=== PATIENT | female | born 1965 | race Caucasian/White ===

== ENCOUNTER 2018-02-06 10:39 | Emergency (ER) | payer OTHER ==
[~2018-02-06] VITALS: Ht 185.4 cm; Wt 80.0 kg
[2018-02-06 11:01] LABS: BASOPHILS % (AUTO) 0.3 % (0-1); EOSINOPHILS # (AUTO) 0.1 X10'3 (0-0.9); EOSINOPHILS % (AUTO) 1.6 % (0-6); HEMATOCRIT 45.6 % (35.0-45.0); HEMOGLOBIN 15.6 g/dl (12.0-16.0); LYMPHOCYTES # (AUTO) 1.8 X10'3 (1.1-4.8); LYMPHOCYTES % (AUTO) 27.1 % (21-51); MEAN CORPUSCULAR HEMOGLOBIN 31.4 PG (27.0-31.0); MEAN CORPUSCULAR HGB CONC 34.3 % (33.0-36.5); MEAN CORPUSCULAR VOLUME 91.5 FL (78-98); MEAN PLATELET VOLUME 6.9 FL (7.4-10.4); MONOCYTES # (AUTO) 0.4 X10'3 (0-0.9); MONOCYTES % (AUTO) 5.8 % (2-12); NEUTROPHILS # (AUTO) 4.3 X10'3 (1.8-7.7); NEUTROPHILS % (AUTO) 65.2 % (42-75); PLATELET COUNT 274 X10'3 (140-440); RED BLOOD COUNT 4.98 X10'6 (4.20-5.60); RED CELL DISTRIBUTION WIDTH 13.3 % (11.5-14.5); WHITE BLOOD COUNT 6.6 X10'3 (4.5-11.0)
[2018-02-06] MEDS ORDERED: morphine IR (immed. release) 30mg tablet PO PRN (11:05)
[2018-02-06] MEDS ORDERED: proCHLORperazine 10 MG/2 ml inj IM ONE (11:10)
[2018-02-06] MEDS ORDERED: ketorolac tromethamine 15mg/ml inj. IM ONE (11:10)
[2018-02-06] MEDS ORDERED: diphenhydrAMINE 25mg capsule PO ONE (11:10)
[2018-02-06 11:16] LABS: ALANINE AMINOTRANSFERASE 30 U/L (12-78); ALBUMIN 4.1 G/DL (3.4-5.0); ALBUMIN/GLOBULIN RATIO 1.3 (1.1-1.5); ALKALINE PHOSPHATASE 79 IU/L (46-116); ANION GAP 5 (8-16); ASPARTATE AMINO TRANSFERASE 17 U/L (10-37); BILIRUBIN,TOTAL 0.6 MG/DL (0.1-1.0); BLOOD UREA NITROGEN 18 MG/DL (7-18); BUN/CREATININE RATIO 18.2 (6.6-38.0); CALCIUM 9.4 MG/DL (8.5-10.1); CHLORIDE 103 MMOL/L (99-107); CREATININE 0.99 MG/DL (0.40-0.90); GLUCOSE 106 MG/DL (70-104); POTASSIUM 4.2 MMOL/L (3.5-5.1); SODIUM 139 MMOL/L (135-145); TOTAL CARBON DIOXIDE 30.9 MMOL/L (24-32); TOTAL PROTEIN 7.3 G/DL (6.4-8.2); eGFR 59 ML/MIN
[2018-02-06 12:19] VITALS: BP 143/88
== END 2018-02-06 12:20 | disposition home or self-care (01) ==
LOC: ER 10:40
DX: R51 Headache (principal); Z90.710 Acquired absence of both cervix and uterus
CPT/HCPCS: 36415; 71045; 80053; 84484; 85025; 93005; 96372; 99285; J0780; J1885; Q0163

== ENCOUNTER 2019-04-10 12:29 | Inpatient (IN) | payer OTHER ==
[~2019-04-10] VITALS: Ht 185.4 cm; Wt 75.0 kg
--- NOTE | 2019-04-10 13:02 | NUR ---
PT REPORTS HAVING CECUM REMOVED AT [facility] ON , PT WENT HOME ON 04/02/19. LAST BM 04/09/19 0600. PT PAIN 04/29
[2019-04-10] MEDS ORDERED: ondansetron/PF 4mg/2ml inj IV ONE (13:05)
[2019-04-10] MEDS ORDERED: normal saline 1000ML IV soln IVB ONE (13:05)
[2019-04-10] MEDS ORDERED: morphine 4 MG/ML inj SYRINge IV PRN (13:05)
[2019-04-10 13:12] LABS: BASOPHILS % (AUTO) 0.4 % (0-1); EOSINOPHILS # (AUTO) 0.2 X10'3 (0-0.9); EOSINOPHILS % (AUTO) 3.1 % (0-6); HEMATOCRIT 40.2 % (35.0-45.0); HEMOGLOBIN 13.8 g/dl (12.0-16.0); LYMPHOCYTES # (AUTO) 1.5 X10'3 (1.1-4.8); LYMPHOCYTES % (AUTO) 21.1 % (21-51); MEAN CORPUSCULAR HEMOGLOBIN 31.4 PG (27.0-31.0); MEAN CORPUSCULAR HGB CONC 34.3 g/dL (33.0-36.5); MEAN CORPUSCULAR VOLUME 91.4 FL (78-98); MEAN PLATELET VOLUME 6.6 FL (7.4-10.4); MONOCYTES # (AUTO) 0.5 X10'3 (0-0.9); NEUTROPHILS # (AUTO) 4.6 X10'3 (1.8-7.7); NEUTROPHILS % (AUTO) 67.4 % (42-75); PLATELET COUNT 777 X10'3 (140-440); RED CELL DISTRIBUTION WIDTH 12.9 % (11.5-14.5); WHITE BLOOD COUNT 6.9 X10'3 (4.5-11.0)
[2019-04-10 13:22] LABS: ALANINE AMINOTRANSFERASE 102 U/L (12-78); ALBUMIN 3.6 G/DL (3.4-5.0); ALBUMIN/GLOBULIN RATIO 0.9 (1.1-1.5); ALKALINE PHOSPHATASE 102 IU/L (46-116); ANION GAP 8 (8-16); ASPARTATE AMINO TRANSFERASE 39 U/L (10-37); BILIRUBIN,TOTAL 0.4 MG/DL (0.1-1.0); BLOOD UREA NITROGEN 11 MG/DL (7-18); BUN/CREATININE RATIO 12.6 (6.6-38.0); CALCIUM 9.5 MG/DL (8.5-10.1); CHLORIDE 102 MMOL/L (99-107); CREATININE 0.87 MG/DL (0.40-0.90); GLUCOSE 98 MG/DL (70-104); POTASSIUM 3.8 MMOL/L (3.5-5.1); SODIUM 140 MMOL/L (135-145); TOTAL PROTEIN 7.5 G/DL (6.4-8.2); eGFR 68 ML/MIN
--- NOTE | 2019-04-10 13:28 | NUR ---
PT OUT TO CT VIA WHEELCHAIR WITH BIN PACKER
[2019-04-10] MEDS ORDERED: HYDROmorphone 1 mg/ml syringe IV ONE (13:45)
[2019-04-10] MEDS ORDERED: proCHLORperazine 10 MG/2 ml inj IV ONE (13:45)
[2019-04-10] MEDS ORDERED: diphenhydrAMINE 50 mg/ml inj IV PRN (14:15)
[2019-04-10] MEDS ORDERED: diphenhydrAMINE 25mg capsule PO PRN (14:15)
[2019-04-10] MEDS ORDERED: mag hydrox/Alum hydrox/simeth 30ml oral suspension PO PRN (14:15)
[2019-04-10] MEDS ORDERED: magnesium Cl slow-release 64mg tablet PO PRN (14:15)
[2019-04-10] MEDS ORDERED: magnesium 2GM in 50ml NS 50 ML IV PRN (14:15)
[2019-04-10] MEDS ORDERED: acetaminophen 650mg rectal suppository RC PRN (14:15)
[2019-04-10] MEDS ORDERED: morphine 2 MG/ML inj. syringe IV PRN (14:15)
[2019-04-10] MEDS ORDERED: acetaminophen 325mg tablet PO PRN (14:15)
[2019-04-10] MEDS ORDERED: magnesium 4gm in 100ml NS 100 ML IV PRN (14:15)
[2019-04-10] MEDS ORDERED: potassium Cl 20 mEq SR tablet PO PRN (14:15)
[2019-04-10] MEDS ORDERED: magnesium hydroxide 30ml (MOM) UD suspension PO PRN (14:15)
[2019-04-10] MEDS: K and/or MAG REPLACEMENT MC SCH (14:15)
[2019-04-10] MEDS ORDERED: potassium CL 10mEq/100ml bag 100 ML IV PRN ×2 (14:15)
[2019-04-10] MEDS ORDERED: bisacodyl 10mg suppository rectal RC PRN (14:15)
[2019-04-10] MEDS ORDERED: metoclopramide 5 mg/ml inj IV PRN (14:15)
[2019-04-10] MEDS ORDERED: CITA40TA17 PO (14:38)
[2019-04-10 14:50] LABS: LIPASE 144 U/L (73-393)
--- NOTE | 2019-04-10 15:45 | NUR ---
Received patient report from LALO Gauthier in ED. Patient now arrived to floor, NG tube to low intermittent suction. Vital signs stable, pt reports no further need at this time.
[2019-04-10 15:50] VITALS: BP 120/72
[2019-04-10] MEDS: dextrose 5%-normal saline 1,000 ML IV SCH (15:54)
--- NOTE | 2019-04-10 18:29 | NUR ---
Patient in room [facility] 359. I have received report from Poppy Whitten RN and had the opportunity to ask questions and assume patient care.
[2019-04-10] MEDS: ondansetron/PF 4mg/2ml inj IV PRN (19:23)
[2019-04-10] MEDS: morphine 2 MG/ML inj. syringe IV PRN (19:24)
[2019-04-10] MEDS: heparin, porcine 5000 units/ml vial SQ SCH (19:25)
[2019-04-10 20:00] VITALS: BP 120/78
[2019-04-10] MEDS ORDERED: HYDROmorphone inj. 0.5 MG/0.5 ML DISP.SYRIN IV PRN (21:20)
[2019-04-10] MEDS ORDERED: pantoprazole 40 MG vial IV ONE (21:40)
[2019-04-10] MEDS: diatr meglu/diatrizoate 30ml oral sol.-(3 dose) bottle PO SCH (22:37)
[2019-04-10] MEDS: HYDROmorphone 1 mg/ml syringe IV PRN (23:27)
[2019-04-10] MEDS: ESOMEPRAZOLE 40 MG VIAL IV SCH (23:27)
[2019-04-11] VITALS: BP 128/82
[2019-04-11] MEDS: dextrose 5%-normal saline 1,000 ML IV SCH ×3 (00:38→20:15)
[2019-04-11] MEDS: HYDROmorphone 1 mg/ml syringe IV PRN ×3 (05:06→18:43)
[2019-04-11 05:59] LABS: BASOPHILS % (AUTO) 0.6 % (0-1); EOSINOPHILS # (AUTO) 0.3 X10'3 (0-0.9); EOSINOPHILS % (AUTO) 6.8 % (0-6); HEMATOCRIT 31.7 % (35.0-45.0); HEMOGLOBIN 10.9 g/dl (12.0-16.0); LYMPHOCYTES # (AUTO) 1.3 X10'3 (1.1-4.8); LYMPHOCYTES % (AUTO) 27.7 % (21-51); MEAN CORPUSCULAR HEMOGLOBIN 31.9 PG (27.0-31.0); MEAN CORPUSCULAR HGB CONC 34.4 g/dL (33.0-36.5); MEAN CORPUSCULAR VOLUME 92.7 FL (78-98); MEAN PLATELET VOLUME 6.7 FL (7.4-10.4); MONOCYTES # (AUTO) 0.5 X10'3 (0-0.9); MONOCYTES % (AUTO) 10.3 % (2-12); NEUTROPHILS # (AUTO) 2.7 X10'3 (1.8-7.7); NEUTROPHILS % (AUTO) 54.6 % (42-75); PLATELET COUNT 547 X10'3 (140-440); RED BLOOD COUNT 3.42 X10'6 (4.20-5.60); RED CELL DISTRIBUTION WIDTH 12.8 % (11.5-14.5); WHITE BLOOD COUNT 4.9 X10'3 (4.5-11.0)
--- NOTE | 2019-04-11 06:06 | NUR ---
Problems reprioritized. Patient report given, questions answered & plan of care reviewed with LALO Simpson.
--- NOTE | 2019-04-11 06:15 | NUR ---
Patient in room [facility] 359. I have received report from Poppy Whitten RN and had the opportunity to ask questions and assume patient care.
[2019-04-11 06:18] LABS: ALANINE AMINOTRANSFERASE 149 U/L (12-78); ALBUMIN 2.6 G/DL (3.4-5.0); ALBUMIN/GLOBULIN RATIO 0.9 (1.1-1.5); ALKALINE PHOSPHATASE 176 IU/L (46-116); ANION GAP 5 (8-16); ASPARTATE AMINO TRANSFERASE 86 U/L (10-37); BILIRUBIN,TOTAL 0.3 MG/DL (0.1-1.0); BLOOD UREA NITROGEN 9 MG/DL (7-18); BUN/CREATININE RATIO 11.5 (6.6-38.0); CALCIUM 8.3 MG/DL (8.5-10.1); CHLORIDE 109 MMOL/L (99-107); CREATININE 0.78 MG/DL (0.40-0.90); GLUCOSE 91 MG/DL (70-104); MAGNESIUM 1.8 MG/DL (1.5-2.4); PHOSPHORUS 3.8 MG/DL (2.3-4.5); POTASSIUM 3.6 MMOL/L (3.5-5.1); SODIUM 143 MMOL/L (135-145); TOTAL CARBON DIOXIDE 28.7 MMOL/L (24-32); TOTAL PROTEIN 5.4 G/DL (6.4-8.2); eGFR 78 ML/MIN
[2019-04-11 07:00] VITALS: BP 122/77
[2019-04-11] MEDS ORDERED: diatr meglu/diatrizoate 30ml oral sol.-(3 dose) bottle PO SCH (07:00)
[2019-04-11] MEDS: diatr meglu/diatrizoate 30ml oral sol.-(3 dose) bottle PO SCH ×2 (07:14→10:44)
[2019-04-11] MEDS: citalopram 20mg tablet PO SCH (07:15)
[2019-04-11] MEDS: K and/or MAG REPLACEMENT MC SCH (08:00)
[2019-04-11] MEDS: heparin, porcine 5000 units/ml vial SQ SCH ×2 (08:00→20:15)
[2019-04-11] MEDS ORDERED: pantoprazole 40 MG vial IV SCH (08:00)
[2019-04-11] MEDS: ondansetron/PF 4mg/2ml inj IV PRN (10:51)
[2019-04-11 11:00] VITALS: BP 143/86
--- NOTE | 2019-04-11 11:31 | NUR ---
Spoke with Dr Watson and received orders to discontinue Tele monitoring. PCU button tacker
[2019-04-11] MEDS ORDERED: metoclopramide 5 mg/ml inj IV PRN (17:15)
--- NOTE | 2019-04-11 18:15 | NUR ---
Problems reprioritized. Patient report given, questions answered & plan of care reviewed with LALO Renee.
--- NOTE | 2019-04-11 18:35 | NUR ---
Patient in room [facility] 347. I have received report from Tatiana MAY and had the opportunity to ask questions and assume patient care.
[2019-04-11] MEDS: metoclopramide 5 mg/ml inj IV SCH (20:13)
[2019-04-11 20:18] VITALS: BP 137/78
[2019-04-12] VITALS: BP 137/79
[2019-04-12] MEDS: ondansetron/PF 4mg/2ml inj IV PRN ×3 (03:04→19:22)
[2019-04-12] MEDS: metoclopramide 5 mg/ml inj IV SCH ×3 (03:05→14:17)
[2019-04-12] MEDS: HYDROmorphone 1 mg/ml syringe IV PRN ×3 (03:05→19:24)
[2019-04-12 04:47] LABS: BASOPHILS % (AUTO) 0.4 % (0-1); EOSINOPHILS # (AUTO) 0.5 X10'3 (0-0.9); EOSINOPHILS % (AUTO) 8.1 % (0-6); HEMATOCRIT 30.1 % (35.0-45.0); HEMOGLOBIN 10.4 g/dl (12.0-16.0); LYMPHOCYTES # (AUTO) 1.6 X10'3 (1.1-4.8); LYMPHOCYTES % (AUTO) 27.1 % (21-51); MEAN CORPUSCULAR HEMOGLOBIN 31.6 PG (27.0-31.0); MEAN CORPUSCULAR HGB CONC 34.5 g/dL (33.0-36.5); MEAN CORPUSCULAR VOLUME 91.4 FL (78-98); MEAN PLATELET VOLUME 6.7 FL (7.4-10.4); MONOCYTES # (AUTO) 0.5 X10'3 (0-0.9); MONOCYTES % (AUTO) 8.2 % (2-12); NEUTROPHILS # (AUTO) 3.3 X10'3 (1.8-7.7); NEUTROPHILS % (AUTO) 56.2 % (42-75); PLATELET COUNT 490 X10'3 (140-440); RED BLOOD COUNT 3.29 X10'6 (4.20-5.60); RED CELL DISTRIBUTION WIDTH 12.7 % (11.5-14.5)
[2019-04-12 05:08] LABS: ALANINE AMINOTRANSFERASE 111 U/L (12-78); ALBUMIN 2.5 G/DL (3.4-5.0); ALKALINE PHOSPHATASE 146 IU/L (46-116); ANION GAP 6 (8-16); ASPARTATE AMINO TRANSFERASE 54 U/L (10-37); BILIRUBIN,TOTAL 0.3 MG/DL (0.1-1.0); BLOOD UREA NITROGEN 5 MG/DL (7-18); BUN/CREATININE RATIO 7.1 (6.6-38.0); CALCIUM 8.2 MG/DL (8.5-10.1); CHLORIDE 110 MMOL/L (99-107); GLUCOSE 95 MG/DL (70-104); MAGNESIUM 1.7 MG/DL (1.5-2.4); PHOSPHORUS 3.6 MG/DL (2.3-4.5); POTASSIUM 3.2 MMOL/L (3.5-5.1); SODIUM 146 MMOL/L (135-145); TOTAL CARBON DIOXIDE 29.7 MMOL/L (24-32); TOTAL PROTEIN 5.1 G/DL (6.4-8.2); eGFR 88 ML/MIN
--- NOTE | 2019-04-12 06:43 | NUR ---
Problems reprioritized. Patient report given, questions answered & plan of care reviewed with Anay MAY.
--- NOTE | 2019-04-12 06:59 | NUR ---
Patient in room [facility] 347. I have received report from ALONA MAY and had the opportunity to ask questions and assume patient care.
[2019-04-12 07:09] VITALS: BP 129/78
--- NOTE | 2019-04-12 07:46 | NUR ---
NEXIUM NOT AVAILABLE FOR THIS OT. CHECKED SPECIFIC BOX, OMNICELL, AND BLUE IN BOX. CALLED PHARMACY, WAITING FOR MED. WILL ADMIN WHEN AVAILABLE
[2019-04-12] MEDS: heparin, porcine 5000 units/ml vial SQ SCH ×2 (07:50→19:22)
[2019-04-12] MEDS: citalopram 20mg tablet PO SCH (07:50)
[2019-04-12] MEDS: K and/or MAG REPLACEMENT MC SCH (08:00)
[2019-04-12] MEDS: dextrose 5%-normal saline 1,000 ML IV SCH ×2 (08:44→19:24)
[2019-04-12] MEDS: ESOMEPRAZOLE 40 MG VIAL IV SCH (08:44)
[2019-04-12] MEDS: potassium Cl 20 mEq SR tablet PO PRN ×2 (10:20→18:20)
[2019-04-12 11:00] VITALS: BP 124/77
--- NOTE | 2019-04-12 18:05 | NUR ---
GAVE REPORT TO ALONA MAY
--- NOTE | 2019-04-12 18:50 | NUR ---
Patient in room [facility] 347. I have received report from Anay MAY and had the opportunity to ask questions and assume patient care.
[2019-04-12 20:00] VITALS: BP 148/81
[2019-04-12] MEDS: morphine 2 MG/ML inj. syringe IV PRN (23:08)
[2019-04-13] VITALS: BP 152/86
[2019-04-13] MEDS: HYDROmorphone 1 mg/ml syringe IV PRN ×2 (00:52→20:05)
[2019-04-13 04:33] LABS: BASOPHILS % (AUTO) 0.6 % (0-1); EOSINOPHILS # (AUTO) 0.4 X10'3 (0-0.9); EOSINOPHILS % (AUTO) 7.5 % (0-6); HEMATOCRIT 31.2 % (35.0-45.0); HEMOGLOBIN 10.9 g/dl (12.0-16.0); LYMPHOCYTES # (AUTO) 1.6 X10'3 (1.1-4.8); LYMPHOCYTES % (AUTO) 30.3 % (21-51); MEAN CORPUSCULAR VOLUME 91.3 FL (78-98); MEAN PLATELET VOLUME 6.8 FL (7.4-10.4); MONOCYTES # (AUTO) 0.5 X10'3 (0-0.9); MONOCYTES % (AUTO) 10.3 % (2-12); NEUTROPHILS # (AUTO) 2.7 X10'3 (1.8-7.7); NEUTROPHILS % (AUTO) 51.3 % (42-75); PLATELET COUNT 479 X10'3 (140-440); RED BLOOD COUNT 3.42 X10'6 (4.20-5.60); RED CELL DISTRIBUTION WIDTH 12.8 % (11.5-14.5); WHITE BLOOD COUNT 5.2 X10'3 (4.5-11.0)
[2019-04-13 04:49] LABS: ALANINE AMINOTRANSFERASE 107 U/L (12-78); ALBUMIN 2.6 G/DL (3.4-5.0); ALBUMIN/GLOBULIN RATIO 0.9 (1.1-1.5); ALKALINE PHOSPHATASE 172 IU/L (46-116); ANION GAP 4 (8-16); ASPARTATE AMINO TRANSFERASE 41 U/L (10-37); BILIRUBIN,TOTAL 0.3 MG/DL (0.1-1.0); BLOOD UREA NITROGEN 3 MG/DL (7-18); BUN/CREATININE RATIO 4.4 (6.6-38.0); CALCIUM 8.5 MG/DL (8.5-10.1); CHLORIDE 109 MMOL/L (99-107); CREATININE 0.68 MG/DL (0.40-0.90); GLUCOSE 82 MG/DL (70-104); MAGNESIUM 1.6 MG/DL (1.5-2.4); PHOSPHORUS 3.9 MG/DL (2.3-4.5); POTASSIUM 3.8 MMOL/L (3.5-5.1); SODIUM 142 MMOL/L (135-145); TOTAL CARBON DIOXIDE 29.1 MMOL/L (24-32); TOTAL PROTEIN 5.4 G/DL (6.4-8.2); eGFR > 90 ML/MIN
--- NOTE | 2019-04-13 06:31 | NUR ---
Problems reprioritized. Patient report given, questions answered & plan of care reviewed with Ksenia MAY.
[2019-04-13 07:46] VITALS: BP 132/85
[2019-04-13] MEDS: K and/or MAG REPLACEMENT MC SCH (08:00)
[2019-04-13] MEDS: heparin, porcine 5000 units/ml vial SQ SCH ×2 (10:02→20:04)
[2019-04-13] MEDS: ESOMEPRAZOLE 40 MG VIAL IV SCH (10:02)
[2019-04-13] MEDS: dextrose 5%-normal saline 1,000 ML IV SCH (10:03)
[2019-04-13] MEDS: citalopram 20mg tablet PO SCH (10:03)
[2019-04-13 12:00] VITALS: BP 126/80
[2019-04-13] MEDS ORDERED: PANT40TA4 PO (12:11)
--- NOTE | 2019-04-13 14:03 | NUR ---
Discharge currently on hold until surgeon approval per MD Watson. Gill has been rounding on pt. but this is Jace pt. and he is now back from vacation. Called Jace who says he will round on this pt. today.
[2019-04-13] MEDS ORDERED: ketorolac trometh. 30mg/ml inj. IM SCH (14:25)
--- NOTE | 2019-04-13 14:28 | NUR ---
MD RENTERIA WOULD LIKE TO KEEP PT. IN HOSPITAL FOR LONGER R/T UNRESOLVED BOWEL BLOCKAGE. MD VANCE MADE AWARE DISCHARGE IS ON HOLD. PAGER ID: [phone] MESSAGE: [phone] Naida RENTERIA ROUNDED ON PT. DOES NOT WANT TO DC. PLEASE PUT DC ON HOLD. THANK YOU. BIANCA [phone]
--- NOTE | 2019-04-13 14:30 | NUR ---
[facility] PT. WILL GO TO SX TOMORROW.
[2019-04-13] MEDS ORDERED: ketorolac trometh. 30mg/ml inj. IM PRN (14:40)
[2019-04-13] MEDS: ketorolac trometh. 30mg/ml inj. IV PRN (16:04)
[2019-04-13 18:00] VITALS: BP 144/84
--- NOTE | 2019-04-13 18:27 | NUR ---
Patient in room [facility] 347B. I have received report from LALO Mccormack and had the opportunity to ask questions and assume patient care.
--- NOTE | 2019-04-13 19:14 | NUR ---
Report given to Fred MAY.
[2019-04-13] MEDS: morphine 2 MG/ML inj. syringe IV PRN (23:25)
[2019-04-14] VITALS (22 sets, daily range): BP systolic 134–198; BP diastolic 83–102
[2019-04-14] MEDS: normal saline 1000ml 1,000 ML IV SCH ×2 (00:55→20:30)
[2019-04-14 06:24] LABS: BASOPHILS % (AUTO) 0.4 % (0-1); EOSINOPHILS # (AUTO) 0.4 X10'3 (0-0.9); EOSINOPHILS % (AUTO) 7.5 % (0-6); HEMATOCRIT 30.6 % (35.0-45.0); HEMOGLOBIN 10.7 g/dl (12.0-16.0); LYMPHOCYTES # (AUTO) 1.5 X10'3 (1.1-4.8); MEAN CORPUSCULAR HEMOGLOBIN 31.7 PG (27.0-31.0); MEAN CORPUSCULAR VOLUME 90.5 FL (78-98); MEAN PLATELET VOLUME 7.2 FL (7.4-10.4); MONOCYTES # (AUTO) 0.4 X10'3 (0-0.9); MONOCYTES % (AUTO) 8.6 % (2-12); NEUTROPHILS # (AUTO) 2.8 X10'3 (1.8-7.7); NEUTROPHILS % (AUTO) 54.5 % (42-75); PLATELET COUNT 471 X10'3 (140-440); RED BLOOD COUNT 3.38 X10'6 (4.20-5.60); RED CELL DISTRIBUTION WIDTH 12.4 % (11.5-14.5); WHITE BLOOD COUNT 5.1 X10'3 (4.5-11.0)
--- NOTE | 2019-04-14 06:25 | NUR ---
Patient in room [facility] 347. I have received report from LALO MOORE and had the opportunity to ask questions and assume patient care.
--- NOTE | 2019-04-14 06:31 | NUR ---
Problems reprioritized. Patient report given, questions answered & plan of care reviewed with LALO Holliday.
[2019-04-14 06:47] LABS: ALANINE AMINOTRANSFERASE 99 U/L (12-78); ALBUMIN 2.6 G/DL (3.4-5.0); ALBUMIN/GLOBULIN RATIO 0.9 (1.1-1.5); ALKALINE PHOSPHATASE 152 IU/L (46-116); ANION GAP 8 (8-16); ASPARTATE AMINO TRANSFERASE 41 U/L (10-37); BILIRUBIN,TOTAL 0.3 MG/DL (0.1-1.0); BLOOD UREA NITROGEN 4 MG/DL (7-18); BUN/CREATININE RATIO 6.2 (6.6-38.0); CALCIUM 8.4 MG/DL (8.5-10.1); CHLORIDE 109 MMOL/L (99-107); CREATININE 0.65 MG/DL (0.40-0.90); GLUCOSE 69 MG/DL (70-104); MAGNESIUM 1.6 MG/DL (1.5-2.4); PHOSPHORUS 3.7 MG/DL (2.3-4.5); SODIUM 144 MMOL/L (135-145); TOTAL CARBON DIOXIDE 27.1 MMOL/L (24-32); TOTAL PROTEIN 5.4 G/DL (6.4-8.2); eGFR > 90 ML/MIN
[2019-04-14] MEDS: citalopram 20mg tablet PO SCH (07:07)
[2019-04-14] MEDS: ESOMEPRAZOLE 40 MG VIAL IV SCH (07:07)
[2019-04-14] MEDS: morphine 2 MG/ML inj. syringe IV PRN ×4 (07:12→21:43)
[2019-04-14] MEDS: K and/or MAG REPLACEMENT MC SCH (07:12)
--- NOTE | 2019-04-14 07:20 | NUR ---
RECEIVED CALL FROM LAB THAT PATIENT K IS CRITICAL 3.0. NO HOSPITALIST LIST AVAILABLE AT THIS TIME. WILL NOTIFY MD WHEN HOSPITALIST OUT. PATIENT A&O AND APPEARS TO BE IN NO DISTRESS. NO COMPLAINTS OTHER THAN ABD PAIN. MORHPHINE GIVEN ORDERED. WILL CONTINUE TO MONITOR.
--- NOTE | 2019-04-14 07:55 | NUR ---
NOTIFIED DR VANCE OF PATIENTS CRITICAL K OF 3.0
[2019-04-14] MEDS: heparin, porcine 5000 units/ml vial SQ SCH ×2 (08:00→21:05)
[2019-04-14] MEDS ORDERED: potassium Cl 20 mEq SR tablet PO PRN ×2 (08:30)
[2019-04-14] MEDS ORDERED: magnesium 4gm in 100ml NS 100 ML IV PRN (08:30)
[2019-04-14] MEDS ORDERED: magnesium Cl slow-release 64mg tablet PO PRN (08:30)
[2019-04-14] MEDS ORDERED: magnesium 2GM in 50ml NS 50 ML IV PRN (08:30)
[2019-04-14] MEDS: potassium CL 10mEq/100ml bag 100 ML IV PRN ×5 (09:08→21:05)
--- NOTE | 2019-04-14 12:31 | NUR ---
Patient down to OR for procedure via bed accompanied by x1 staff. OR entertainment musician, Flory, Dr. Watson and anesthesiologist all aware of patient's critical K of 3.0 and currently being replaced.
[2019-04-14] MEDS ORDERED: clindamycin phosphate 150mg/ml inj. ONE (13:00)
[2019-04-14] MEDS ORDERED: gentamicin 40 MG/1 ML inj ONE (13:00)
[2019-04-14] MEDS ORDERED: BUPIVAcaine/PF 2.5 mg/ml (0.25%) 30ml vial ONE (13:08)
[2019-04-14] MEDS ORDERED: BUPIVAcaine/PF 2.5mg/ml (0.25%) 10ml vial ONE (13:08)
[2019-04-14] MEDS ORDERED: BUPIVACAINE liposomal/PF 13.3 MG/ML vial IM ONE ×2 (13:09→13:23)
[2019-04-14] MEDS ORDERED: ringers solution, lacted 1,000 ML IV SCH (13:13)
[2019-04-14] MEDS ORDERED: meperidine/PF 25mg/ml syringe IV PRN ×2 (13:15)
[2019-04-14] MEDS ORDERED: morphine 4 MG/ML inj SYRINge IV PRN ×2 (13:15)
[2019-04-14] MEDS ORDERED: ondansetron/PF 4mg/2ml inj IV PRN (13:15)
[2019-04-14] MEDS ORDERED: proCHLORperazine 10 MG/2 ml inj IV PRN (13:15)
[2019-04-14] MEDS ORDERED: fentaNYL/PF 50MCG/1 ML 2ML syringe ONE ×2 (13:30→14:54)
[2019-04-14] MEDS ORDERED: rocuronium 10mg/ml inj IV ONE (13:30)
[2019-04-14] MEDS ORDERED: midazolam 2 mg/2 ml injection ONE (13:30)
[2019-04-14] MEDS ORDERED: propofol inj 20 ML IV ONE (13:31)
[2019-04-14] MEDS ORDERED: sevoflurane 250ml liquid IH ONE (13:41)
[2019-04-14] MEDS ORDERED: ceFOXitin 2 GM ADDVANTGE BAG 50 ML IV ONE (13:50)
[2019-04-14] MEDS ORDERED: sugammadex 200mg/2ml injection IV ONE (15:18)
[2019-04-14] MEDS: meperidine/PF 25mg/ml syringe IV PRN ×2 (16:17→16:29)
--- NOTE | 2019-04-14 16:59 | NUR ---
RECEIVED REPORT FROM LALO BURGESS. AWAITING PATIENT ARRIVAL BACK TO ROOM 347B.
--- NOTE | 2019-04-14 17:00 | NUR ---
Discharge criteria met, report to receiving floor. Transferred to room in stable condition. PACU stay eventful with emesis of green fluid, NG suction, pain control. Pain and nausea resolved at time of transfer to room.
--- NOTE | 2019-04-14 17:14 | NUR ---
RECEIVED PATIENT BACK TO ROOM 347B VIA BED ACCOMPANIED BY X1 STAFF. PATIENT IS DROWSY BUT EASILY AWAKENS. Addendum: 04/14/19 at 1723 by Mg Live RN POST OP VITALS INITIATED. PATIENT NG DC'D BY LALO BURGESS AT BEDSIDE. PHAN CATH DRAINING TO GRAVITY. WOUND VAC AT 125MMHG WITH SCANT AMOUNT OF SEROUS SANGUINEOUS DRAINAGE. SCD'S ON, BED IS LOW AND LOCKED,CALL LIGHT WITHIN REACH.
--- NOTE | 2019-04-14 18:00 | NUR ---
Patient in room [facility] 347B. I have received report from LALO Holliday and had the opportunity to ask questions and assume patient care.
--- NOTE | 2019-04-14 18:17 | NUR ---
Problems reprioritized. Patient report given, questions answered & plan of care reviewed with LALO MOORE.
[2019-04-14] MEDS ORDERED: metoclopramide 5 mg/ml inj IV PRN (19:10)
[2019-04-14] MEDS: ketorolac trometh. 30mg/ml inj. IV PRN (19:22)
[2019-04-14] MEDS: ondansetron/PF 4mg/2ml inj IV PRN (19:22)
[2019-04-15] VITALS: BP 125/97
[2019-04-15] MEDS ORDERED: ceFOXitin 1 GM/D5W 50mL IVPB 1,000 GM in normal saline 100ml IV soln 100 ML IV SCH ×2
[2019-04-15] MEDS: normal saline 1000ml 1,000 ML IV SCH (00:47)
[2019-04-15] MEDS: potassium CL 10mEq/100ml bag 100 ML IV PRN ×2 (00:47→04:17)
[2019-04-15] MEDS: ceFOXitin 1 GM/D5W 50mL IVPB 50 ML IV SCH ×3 (00:47→16:46)
[2019-04-15] MEDS: ketorolac trometh. 30mg/ml inj. IV PRN ×2 (01:10→10:52)
[2019-04-15] MEDS: morphine 2 MG/ML inj. syringe IV PRN ×2 (03:05→08:52)
[2019-04-15] MEDS ORDERED: HYDROmorphone inj. 0.5 MG/0.5 ML DISP.SYRIN IV ONE (04:45)
[2019-04-15 05:31] LABS: ALANINE AMINOTRANSFERASE 98 U/L (12-78); ALBUMIN 2.5 G/DL (3.4-5.0); ALBUMIN/GLOBULIN RATIO 0.9 (1.1-1.5); ALKALINE PHOSPHATASE 135 IU/L (46-116); ANION GAP 13 (8-16); ASPARTATE AMINO TRANSFERASE 41 U/L (10-37); BILIRUBIN,TOTAL 0.4 MG/DL (0.1-1.0); BLOOD UREA NITROGEN 10 MG/DL (7-18); BUN/CREATININE RATIO 8.4 (6.6-38.0); CALCIUM 8.4 MG/DL (8.5-10.1); CHLORIDE 109 MMOL/L (99-107); CREATININE 1.19 MG/DL (0.40-0.90); GLUCOSE 132 MG/DL (70-104); MAGNESIUM 1.3 MG/DL (1.5-2.4); PHOSPHORUS 6.1 MG/DL (2.3-4.5); POTASSIUM 4.5 MMOL/L (3.5-5.1); SODIUM 143 MMOL/L (135-145); TOTAL CARBON DIOXIDE 21.1 MMOL/L (24-32); TOTAL PROTEIN 5.4 G/DL (6.4-8.2); eGFR 48 ML/MIN
[2019-04-15 05:39] LABS: BASOPHILS % (AUTO) 0.1 % (0-1); EOSINOPHILS % (AUTO) 0 % (0-6); HEMATOCRIT 34.8 % (35.0-45.0); HEMOGLOBIN 11.7 g/dl (12.0-16.0); LYMPHOCYTES # (AUTO) 0.5 X10'3 (1.1-4.8); LYMPHOCYTES % (AUTO) 2.6 % (21-51); MEAN CORPUSCULAR HEMOGLOBIN 31.3 PG (27.0-31.0); MEAN CORPUSCULAR HGB CONC 33.7 g/dL (33.0-36.5); MEAN CORPUSCULAR VOLUME 92.8 FL (78-98); MEAN PLATELET VOLUME 7.1 FL (7.4-10.4); MONOCYTES # (AUTO) 0.4 X10'3 (0-0.9); MONOCYTES % (AUTO) 2.5 % (2-12); NEUTROPHILS # (AUTO) 17.1 X10'3 (1.8-7.7); NEUTROPHILS % (AUTO) 94.8 % (42-75); PLATELET COUNT 538 X10'3 (140-440); RED BLOOD COUNT 3.75 X10'6 (4.20-5.60); RED CELL DISTRIBUTION WIDTH 13.2 % (11.5-14.5); WHITE BLOOD COUNT 18.1 X10'3 (4.5-11.0)
--- NOTE | 2019-04-15 06:38 | NUR ---
Problems reprioritized. Patient report given, questions answered & plan of care reviewed with LALO Dial.
--- NOTE | 2019-04-15 06:54 | NUR ---
Patient in room [facility] 347. I have received report from Fred MAY and had the opportunity to ask questions and assume patient care.
[2019-04-15 07:22] VITALS: BP 135/73
[2019-04-15] MEDS: K and/or MAG REPLACEMENT MC SCH (08:00)
[2019-04-15] MEDS: ESOMEPRAZOLE 40 MG VIAL IV SCH (08:37)
[2019-04-15] MEDS: heparin, porcine 5000 units/ml vial SQ SCH ×2 (08:37→20:09)
[2019-04-15] MEDS: citalopram 20mg tablet PO SCH (08:37)
[2019-04-15 11:00] VITALS: BP 112/57
[2019-04-15] MEDS ORDERED: HYDROmorphone inj. 0.5 MG/0.5 ML DISP.SYRIN IV PRN (11:15)
--- NOTE | 2019-04-15 11:54 | NUR ---
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 Pt now s/p lysis of adhesions and redo of coloileal anastomosis with placement of wound VAC 04/14. Pt previously on clear liquid diet however now NPO. Pt would benefit from protein education once stable. [facility] 04/13. Will continue to follow and monitor need for ONS with diet advancement. Recommendations: 1) Advance to low fiber/low residue diet as medically indicated 2) Monitor need for ONS with diet advancement 3) Protein education once stable prior to d/c 4) Wt per rx Addendum: 04/15/19 at [address] Amended: Links added.
[2019-04-15] MEDS ORDERED: normal saline 1000ml 1,000 ML IV SCH (13:17)
[2019-04-15] MEDS ORDERED: CADD PCA waste documentation MC PRN (13:20)
[2019-04-15] MEDS ORDERED: naloxone 0.4 mg/ml inj IV PRN (13:20)
[2019-04-15] MEDS: HYDROmorphone/NS 1 mg/ml CADD 50 ML IV SCH ×6 (14:40→23:00)
[2019-04-15] MEDS: ondansetron/PF 4mg/2ml inj IV PRN (14:44)
[2019-04-15] MEDS ORDERED: HYDROmorphone/NS 1 mg/ml CADD 50 ML IV SCH (15:00)
--- NOTE | 2019-04-15 18:03 | NUR ---
Patient in room [facility] 347. I have received report from LALO Dial and had the opportunity to ask questions and assume patient care.
--- NOTE | 2019-04-15 18:30 | NUR ---
Problems reprioritized. Patient report given, questions answered & plan of care reviewed with Fred MAY.
[2019-04-15 20:00] VITALS: BP 91/50
[2019-04-15] MEDS: lactobacillus rhamnosus 10,000 MMU CELLS/CAPSULE PO SCH (20:09)
[2019-04-16] VITALS (7 sets, daily range): BP systolic 99–131; BP diastolic 39–66
[2019-04-16] MEDS: ceFOXitin 1 GM/D5W 50mL IVPB 50 ML IV SCH ×3 (00:29→17:16)
[2019-04-16] MEDS: HYDROmorphone/NS 1 mg/ml CADD 50 ML IV SCH ×12 (01:00→23:00)
--- NOTE | 2019-04-16 06:44 | NUR ---
Problems reprioritized. Patient report given, questions answered & plan of care reviewed with LALO Dial.
[2019-04-16] MEDS: lactobacillus rhamnosus 10,000 MMU CELLS/CAPSULE PO SCH ×2 (08:00→19:07)
[2019-04-16] MEDS: citalopram 20mg tablet PO SCH (08:00)
[2019-04-16] MEDS: ESOMEPRAZOLE 40 MG VIAL IV SCH (08:00)
[2019-04-16] MEDS: K and/or MAG REPLACEMENT MC SCH (08:00)
[2019-04-16] MEDS: heparin, porcine 5000 units/ml vial SQ SCH (08:00)
[2019-04-16 09:24] LABS: BASOPHILS % (AUTO) 0.1 % (0-1); EOSINOPHILS # (AUTO) 0.7 X10'3 (0-0.9); EOSINOPHILS % (AUTO) 4.9 % (0-6); HEMATOCRIT 22.9 % (35.0-45.0); HEMOGLOBIN 7.9 g/dl (12.0-16.0); LYMPHOCYTES # (AUTO) 0.6 X10'3 (1.1-4.8); LYMPHOCYTES % (AUTO) 4.8 % (21-51); MEAN CORPUSCULAR HEMOGLOBIN 31.5 PG (27.0-31.0); MEAN CORPUSCULAR HGB CONC 34.4 g/dL (33.0-36.5); MEAN CORPUSCULAR VOLUME 91.6 FL (78-98); MEAN PLATELET VOLUME 6.7 FL (7.4-10.4); MONOCYTES # (AUTO) 0.5 X10'3 (0-0.9); MONOCYTES % (AUTO) 3.9 % (2-12); NEUTROPHILS # (AUTO) 11.7 X10'3 (1.8-7.7); NEUTROPHILS % (AUTO) 86.3 % (42-75); PLATELET COUNT 337 X10'3 (140-440); RED BLOOD COUNT 2.49 X10'6 (4.20-5.60); WHITE BLOOD COUNT 13.6 X10'3 (4.5-11.0)
[2019-04-16 09:40] LABS: ALANINE AMINOTRANSFERASE 59 U/L (12-78); ALBUMIN 1.9 G/DL (3.4-5.0); ALBUMIN/GLOBULIN RATIO 0.7 (1.1-1.5); ALKALINE PHOSPHATASE 101 IU/L (46-116); ANION GAP 6 (8-16); ASPARTATE AMINO TRANSFERASE 15 U/L (10-37); BILIRUBIN,TOTAL 0.3 MG/DL (0.1-1.0); BLOOD UREA NITROGEN 23 MG/DL (7-18); BUN/CREATININE RATIO 13.9 (6.6-38.0); CALCIUM 7.9 MG/DL (8.5-10.1); CHLORIDE 104 MMOL/L (99-107); CREATININE 1.66 MG/DL (0.40-0.90); GLUCOSE 86 MG/DL (70-104); POTASSIUM 4.4 MMOL/L (3.5-5.1); SODIUM 136 MMOL/L (135-145); TOTAL CARBON DIOXIDE 26.2 MMOL/L (24-32); TOTAL PROTEIN 4.8 G/DL (6.4-8.2); eGFR 32 ML/MIN
[2019-04-16] MEDS: normal saline 1000ml 1,000 ML IV SCH ×2 (11:59→19:14)
[2019-04-16 13:59] LABS: HEMOGLOBIN 7.4 g/dl (12.0-16.0); MEAN CORPUSCULAR HEMOGLOBIN 31.4 PG (27.0-31.0); MEAN CORPUSCULAR HGB CONC 34.4 g/dL (33.0-36.5); MEAN CORPUSCULAR VOLUME 91.3 FL (78-98); MEAN PLATELET VOLUME 7.1 FL (7.4-10.4); PLATELET COUNT 295 X10'3 (140-440); RED BLOOD COUNT 2.36 X10'6 (4.20-5.60); RED CELL DISTRIBUTION WIDTH 12.8 % (11.5-14.5); WHITE BLOOD COUNT 12.4 X10'3 (4.5-11.0)
[2019-04-16 14:03] LABS: HEMATOCRIT 21.5 % (35.0-45.0)
[2019-04-16] MEDS ORDERED: albumin (Human) 5% 250ml 250 ML IV ONE ×2 (15:00)
--- NOTE | 2019-04-16 18:30 | NUR ---
Problems reprioritized. Patient report given, questions answered & plan of care reviewed with Ermelinda MAY.
--- NOTE | 2019-04-16 18:30 | NUR ---
Patient in room [facility] 347. I have received report from Jayro MAY and had the opportunity to ask questions and assume patient care. Patient and discussing plan of care for patient. Will continue to monitor.
[2019-04-16 19:20] LABS: BASOPHILS % (AUTO) 0.1 % (0-1); EOSINOPHILS # (AUTO) 0.7 X10'3 (0-0.9); EOSINOPHILS % (AUTO) 6.2 % (0-6); LYMPHOCYTES # (AUTO) 0.6 X10'3 (1.1-4.8); LYMPHOCYTES % (AUTO) 5.5 % (21-51); MEAN CORPUSCULAR HEMOGLOBIN 31.4 PG (27.0-31.0); MEAN CORPUSCULAR VOLUME 92.4 FL (78-98); MEAN PLATELET VOLUME 6.7 FL (7.4-10.4); MONOCYTES # (AUTO) 0.5 X10'3 (0-0.9); MONOCYTES % (AUTO) 4.3 % (2-12); NEUTROPHILS # (AUTO) 9.8 X10'3 (1.8-7.7); NEUTROPHILS % (AUTO) 83.9 % (42-75); PLATELET COUNT 277 X10'3 (140-440); RED BLOOD COUNT 2.21 X10'6 (4.20-5.60); WHITE BLOOD COUNT 11.7 X10'3 (4.5-11.0)
[2019-04-16 19:25] LABS: HEMOGLOBIN 6.9 g/dl (12.0-16.0)
[2019-04-16 19:26] LABS: HEMATOCRIT 20.5 % (35.0-45.0)
--- NOTE | 2019-04-16 19:40 | NUR ---
Notified Dr. Garland that the patient's blood pressure was 120/60 HR 104 and her H/H is 6.9/20.5, also that patient's urine output increased. Received order to provide 2 units now. Will continue to monitor.
--- NOTE | 2019-04-16 21:39 | NUR ---
Patient states that she feels weak and shaky. Awaiting blood transfusion but agreed to allow blood sugar to be obtained to ensure not an additional cause. Blood sugar was 76, patient did not eat dinner, ate jello and states is feeling much better. Will continue to monitor.
[2019-04-17] VITALS (11 sets, daily range): BP systolic 106–123; BP diastolic 58–73
[2019-04-17] MEDS: ceFOXitin 1 GM/D5W 50mL IVPB 50 ML IV SCH ×3 (00:30→16:37)
[2019-04-17] MEDS: HYDROmorphone/NS 1 mg/ml CADD 50 ML IV SCH ×11 (01:00→23:00)
[2019-04-17] MEDS: ondansetron/PF 4mg/2ml inj IV PRN (01:26)
--- NOTE | 2019-04-17 06:30 | NUR ---
Problems reprioritized. Patient report given, questions answered & plan of care reviewed with Pippa MAY. Patient resting in bed, provided ice chips, denies further needs.
--- NOTE | 2019-04-17 06:54 | NUR ---
Patient in room [facility] 347. I have received report from LALO Wadsworth and had the opportunity to ask questions and assume patient care.
[2019-04-17] MEDS: K and/or MAG REPLACEMENT MC SCH (08:00)
[2019-04-17 08:08] LABS: BASOPHILS % (AUTO) 0.2 % (0-1); EOSINOPHILS # (AUTO) 0.7 X10'3 (0-0.9); EOSINOPHILS % (AUTO) 7.3 % (0-6); HEMATOCRIT 27.1 % (35.0-45.0); HEMOGLOBIN 9.2 g/dl (12.0-16.0); LYMPHOCYTES # (AUTO) 0.6 X10'3 (1.1-4.8); LYMPHOCYTES % (AUTO) 5.6 % (21-51); MEAN CORPUSCULAR HGB CONC 33.8 g/dL (33.0-36.5); MEAN CORPUSCULAR VOLUME 91.6 FL (78-98); MONOCYTES # (AUTO) 0.6 X10'3 (0-0.9); MONOCYTES % (AUTO) 6.1 % (2-12); NEUTROPHILS # (AUTO) 8.2 X10'3 (1.8-7.7); NEUTROPHILS % (AUTO) 80.8 % (42-75); PLATELET COUNT 237 X10'3 (140-440); RED BLOOD COUNT 2.96 X10'6 (4.20-5.60); RED CELL DISTRIBUTION WIDTH 13.7 % (11.5-14.5); WHITE BLOOD COUNT 10.1 X10'3 (4.5-11.0)
[2019-04-17] MEDS: citalopram 20mg tablet PO SCH (08:12)
[2019-04-17] MEDS: ESOMEPRAZOLE 40 MG VIAL IV SCH (08:12)
[2019-04-17] MEDS: lactobacillus rhamnosus 10,000 MMU CELLS/CAPSULE PO SCH ×2 (08:12→21:20)
[2019-04-17 08:26] LABS: ALANINE AMINOTRANSFERASE 43 U/L (12-78); ALBUMIN 2.1 G/DL (3.4-5.0); ALBUMIN/GLOBULIN RATIO 0.7 (1.1-1.5); ALKALINE PHOSPHATASE 93 IU/L (46-116); ANION GAP 7 (8-16); ASPARTATE AMINO TRANSFERASE 13 U/L (10-37); BILIRUBIN,TOTAL 0.7 MG/DL (0.1-1.0); BLOOD UREA NITROGEN 12 MG/DL (7-18); BUN/CREATININE RATIO 12.4 (6.6-38.0); CALCIUM 7.9 MG/DL (8.5-10.1); CHLORIDE 106 MMOL/L (99-107); CREATININE 0.97 MG/DL (0.40-0.90); GLUCOSE 79 MG/DL (70-104); MAGNESIUM 1.7 MG/DL (1.5-2.4); SODIUM 138 MMOL/L (135-145); TOTAL CARBON DIOXIDE 24.9 MMOL/L (24-32); eGFR 60 ML/MIN
[2019-04-17] MEDS: normal saline 1000ml 1,000 ML IV SCH ×2 (11:56→19:00)
--- NOTE | 2019-04-17 15:42 | NUR ---
WOUND VAC EDUCATION PROVIDED BY WOUND CARE 1. Patient instructed to call the Wound Center or their Home Health Agency immediately if: * They notice a change in the color or amount of the fluid in the canister. * Their wound looks more red than usual or has a foul smell. * The skin around their wound looks reddened or irritated. * The dressing feels loose or appears to be loose. * They experience any increase or changes in their pain. * The alarm will not turn off. 2. Patient instructed that they should not be disconnected from suction for more than 2 hours at a time. * If they are not able to get the suction back on, they need to remove the dressing and take all of the foam out of the wound. * Then moisten sterile gauze with normal saline and place on/in the wound. * Change the dressing once a day until arrangements have been made to replace the wound vac dressing. 3. Patient instructed to turn the wound vac machine OFF and call 911 or go to the ED immediately if their canister fills rapidly with blood. 4. If any of these occur while in the hospital tell a nurse immediately. Addendum: 04/17/19 at 1542 by Tremaine Sanchez RN Amended: Links added.
--- NOTE | 2019-04-17 17:30 | NUR ---
PAGER ID: [phone] MESSAGE: [facility] [id number] re [facility] please call regarding heparin being DC'd, thank you
--- NOTE | 2019-04-17 18:30 | NUR ---
Patient in room [facility] 347. I have received report from Pippa MAY and had the opportunity to ask questions and assume patient care. Patient in room with CADD running, will continue to monitor.
--- NOTE | 2019-04-17 18:40 | NUR ---
Problems reprioritized. Patient report given, questions answered & plan of care reviewed with LALO Wadsworth.
--- NOTE | 2019-04-17 20:00 | NUR ---
Patient's CADD discontinued due to order which prevented 1900 documentation to be charted, Number of doses 152/224, total infused 30.40, residual volume 18.1. Will continue to monitor.
[2019-04-17] MEDS ORDERED: oxyCODONE/APAP 10/325mg tablet PO PRN (20:05)
--- NOTE | 2019-04-17 20:35 | NUR ---
New order placed for Oxy IR, Pharmacist Chelly called to clarify that CADD was to be discontinued. Notified Dr. Mckinley of patient's conversation with Dr. Kelly in regards to the CADD being kept throughout evening due to trial of increase in food throughout the evening and wanting to determine what is causing nausea if it occurs. Received okay from Dr. Mckinley to continue CADD throughout evening and start Oxy IR in am. Discussed with Chelly pharmacist who will change order to start in the am at 0900 or 1000. Will continue to monitor patient's pain.
[2019-04-18] VITALS: BP 143/79
[2019-04-18] MEDS: normal saline 1000ml 1,000 ML IV SCH ×2 (00:10→17:58)
[2019-04-18] MEDS: ceFOXitin 1 GM/D5W 50mL IVPB 50 ML IV SCH ×4 (00:36→23:36)
[2019-04-18] MEDS: HYDROmorphone/NS 1 mg/ml CADD 50 ML IV SCH ×5 (01:00→09:00)
[2019-04-18 04:44] LABS: BASOPHILS % (AUTO) 0.2 % (0-1); EOSINOPHILS # (AUTO) 0.6 X10'3 (0-0.9); EOSINOPHILS % (AUTO) 8.2 % (0-6); HEMATOCRIT 26.7 % (35.0-45.0); HEMOGLOBIN 9.1 g/dl (12.0-16.0); LYMPHOCYTES # (AUTO) 0.6 X10'3 (1.1-4.8); LYMPHOCYTES % (AUTO) 7.9 % (21-51); MEAN CORPUSCULAR HEMOGLOBIN 31.2 PG (27.0-31.0); MEAN CORPUSCULAR HGB CONC 34.2 g/dL (33.0-36.5); MEAN CORPUSCULAR VOLUME 91.2 FL (78-98); MONOCYTES # (AUTO) 0.6 X10'3 (0-0.9); MONOCYTES % (AUTO) 8.1 % (2-12); NEUTROPHILS # (AUTO) 5.9 X10'3 (1.8-7.7); NEUTROPHILS % (AUTO) 75.6 % (42-75); PLATELET COUNT 268 X10'3 (140-440); RED BLOOD COUNT 2.93 X10'6 (4.20-5.60); RED CELL DISTRIBUTION WIDTH 13.6 % (11.5-14.5); WHITE BLOOD COUNT 7.8 X10'3 (4.5-11.0)
[2019-04-18 04:53] LABS: ALBUMIN 2.1 G/DL (3.4-5.0); ANION GAP 7 (8-16); BLOOD UREA NITROGEN 6 MG/DL (7-18); BUN/CREATININE RATIO 7.1 (6.6-38.0); CALCIUM 7.9 MG/DL (8.5-10.1); CHLORIDE 105 MMOL/L (99-107); CREATININE 0.84 MG/DL (0.40-0.90); GLUCOSE 88 MG/DL (70-104); POTASSIUM 3.6 MMOL/L (3.5-5.1); SODIUM 138 MMOL/L (135-145); TOTAL CARBON DIOXIDE 26.1 MMOL/L (24-32); eGFR 71 ML/MIN
--- NOTE | 2019-04-18 06:40 | NUR ---
Patient in room [facility] 347. I have received report from LALO Wadsworth and had the opportunity to ask questions and assume patient care.
--- NOTE | 2019-04-18 06:42 | NUR ---
Problems reprioritized. Patient report given, questions answered & plan of care reviewed with Pippa MAY.
[2019-04-18 08:00] VITALS: BP 140/90
[2019-04-18] MEDS: K and/or MAG REPLACEMENT MC SCH (08:00)
[2019-04-18] MEDS: ESOMEPRAZOLE 40 MG VIAL IV SCH (09:27)
[2019-04-18] MEDS: lactobacillus rhamnosus 10,000 MMU CELLS/CAPSULE PO SCH ×2 (09:28→19:17)
[2019-04-18] MEDS: oxyCODONE/APAP 10/325mg tablet PO PRN (09:28)
[2019-04-18] MEDS: citalopram 20mg tablet PO SCH (09:28)
[2019-04-18 12:00] VITALS: BP 151/79
--- NOTE | 2019-04-18 12:00 | NUR ---
I have reviewed and agree with all interventions, assessments performed and documented by LALO Salgado.
[2019-04-18] MEDS ORDERED: morphine ER 15mg tablet PO ONE (14:10)
[2019-04-18 18:00] VITALS: BP 150/91
--- NOTE | 2019-04-18 18:00 | NUR ---
Problems reprioritized. Patient report given, questions answered & plan of care reviewed with Jose Enrique.
--- NOTE | 2019-04-18 18:05 | NUR ---
Patient in room [facility] 347. I have received report from Natanael, Tamiko and had the opportunity to ask questions and assume patient care.
[2019-04-18] MEDS: morphine ER 15mg tablet PO SCH (19:17)
[2019-04-19] VITALS: BP 159/93
[2019-04-19] MEDS: oxyCODONE/APAP 10/325mg tablet PO PRN (04:41)
--- NOTE | 2019-04-19 06:06 | NUR ---
Problems reprioritized. Patient report given, questions answered & plan of care reviewed with LALO Mccormack.
[2019-04-19] MEDS: K and/or MAG REPLACEMENT MC SCH (07:22)
[2019-04-19] MEDS: morphine ER 15mg tablet PO SCH (07:22)
[2019-04-19] MEDS: ESOMEPRAZOLE 40 MG VIAL IV SCH (07:22)
[2019-04-19] MEDS: citalopram 20mg tablet PO SCH (07:22)
[2019-04-19] MEDS: lactobacillus rhamnosus 10,000 MMU CELLS/CAPSULE PO SCH (07:22)
[2019-04-19] MEDS: normal saline 1000ml 1,000 ML IV SCH (07:23)
[2019-04-19 07:31] VITALS: BP 151/90
[2019-04-19 09:36] LABS: BASOPHILS % (AUTO) 0.3 % (0-1); EOSINOPHILS # (AUTO) 0.6 X10'3 (0-0.9); EOSINOPHILS % (AUTO) 8.4 % (0-6); HEMATOCRIT 27.7 % (35.0-45.0); HEMOGLOBIN 9.4 g/dl (12.0-16.0); LYMPHOCYTES # (AUTO) 0.7 X10'3 (1.1-4.8); LYMPHOCYTES % (AUTO) 10.5 % (21-51); MEAN CORPUSCULAR HGB CONC 33.9 g/dL (33.0-36.5); MEAN CORPUSCULAR VOLUME 91.4 FL (78-98); MEAN PLATELET VOLUME 6.6 FL (7.4-10.4); MONOCYTES # (AUTO) 0.7 X10'3 (0-0.9); MONOCYTES % (AUTO) 9.9 % (2-12); NEUTROPHILS % (AUTO) 70.9 % (42-75); PLATELET COUNT 316 X10'3 (140-440); RED BLOOD COUNT 3.03 X10'6 (4.20-5.60); RED CELL DISTRIBUTION WIDTH 13.3 % (11.5-14.5)
[2019-04-19 09:45] LABS: ALANINE AMINOTRANSFERASE 36 U/L (12-78); ALBUMIN 2.1 G/DL (3.4-5.0); ALBUMIN/GLOBULIN RATIO 0.7 (1.1-1.5); ALKALINE PHOSPHATASE 89 IU/L (46-116); ANION GAP 7 (8-16); ASPARTATE AMINO TRANSFERASE 13 U/L (10-37); BILIRUBIN,TOTAL 0.6 MG/DL (0.1-1.0); BLOOD UREA NITROGEN 4 MG/DL (7-18); BUN/CREATININE RATIO 5.7 (6.6-38.0); CALCIUM 7.9 MG/DL (8.5-10.1); CHLORIDE 104 MMOL/L (99-107); GLUCOSE 92 MG/DL (70-104); POTASSIUM 3.1 MMOL/L (3.5-5.1); SODIUM 140 MMOL/L (135-145); TOTAL CARBON DIOXIDE 29.2 MMOL/L (24-32); TOTAL PROTEIN 5.3 G/DL (6.4-8.2); eGFR 88 ML/MIN
[2019-04-19] MEDS: ceFOXitin 1 GM/D5W 50mL IVPB 50 ML IV SCH (10:25)
[2019-04-19 11:00] VITALS: BP 137/86
--- NOTE | 2019-04-19 11:15 | NUR ---
Pt. stated she did not understand what was being given when she received her MOM this AM per charge nurse. Clarified personally with pt. as the medication was clearly explained before administration and pt. was given the opportunity to ask questions regarding all medication administered. Pt. apologized and stated the MS contin she had taken earlier had "just kicked in" and that she felt "groggy". Will notify MD during rounds about potential ASE noted of MS contin. Will cont. to monitor on my shift.
[2019-04-19] MEDS ORDERED: acetaminophen 325mg tablet PO PRN (11:30)
--- NOTE | 2019-04-19 11:59 | NUR ---
WOUND VAC EDUCATION PROVIDED BY WOUND CARE 1. Patient instructed to call the Wound Center or their Home Health Agency immediately if: * They notice a change in the color or amount of the fluid in the canister. * Their wound looks more red than usual or has a foul smell. * The skin around their wound looks reddened or irritated. * The dressing feels loose or appears to be loose. * They experience any increase or changes in their pain. * The alarm will not turn off. 2. Patient instructed that they should not be disconnected from suction for more than 2 hours at a time. * If they are not able to get the suction back on, they need to remove the dressing and take all of the foam out of the wound. * Then moisten sterile gauze with normal saline and place on/in the wound. * Change the dressing once a day until arrangements have been made to replace the wound vac dressing. 3. Patient instructed to turn the wound vac machine OFF and call 911 or go to the ED immediately if their canister fills rapidly with blood. 4. If any of these occur while in the hospital tell a nurse immediately. Addendum: 04/19/19 at 1201 by Sonali Carmen RN Amended: Links added.
[2019-04-19] MEDS ORDERED: PER10325T PO (14:02)
[2019-04-19] MEDS ORDERED: CIPR-230 PO (14:02)
[2019-04-19] MEDS ORDERED: potassium Cl 20 mEq SR tablet PO STA (14:35)
--- NOTE | 2019-04-19 16:00 | NUR ---
Education on prescription given to pt. and . Potential ASE reviewed, good feedback from pt. Pt. aware to pickler helper prescriptions at [facility] on [address]. Discharge paperwork reviewed with pt. She had an opportunity to ask questions as well as her . This RN went to break. Resource RN notified and assisted with discharge. She stated she educated pt. on home Provena... set at 125 low continuous suction. 0 output in hospital wound vac at discharge. Pt had all the Provena supplies with her. Pt.'s IV was DC'd. Wristband removed. Hospital staff member escorted pt. to private vehicle with her belongings.
== END 2019-04-19 16:00 | disposition home or self-care (01) | DRG 329 ==
LOC: ER 12:29 → SUR 3N 15:35 → CMPBEDREQ 21:00 → SUR 3N 04-11 10:13
PROVIDERS: ADMIT Family Medicine; ATTEND Family Medicine
PROC: 0DBH0ZZ Excision of Cecum, Open Approach (ICD-10-PCS; 2019-04-14)
PROC: 3E0T3BZ Introduction of Anesthetic Agent into Peripheral Nerves and Plexi, Percutaneous Approach (ICD-10-PCS; 2019-04-14)
PROC: 0DN80ZZ Release Small Intestine, Open Approach (ICD-10-PCS; principal; 2019-04-14 13:41)
PROC: 30233N1 Transfusion of Nonautologous Red Blood Cells into Peripheral Vein, Percutaneous Approach (ICD-10-PCS; 2019-04-16)
PROC: 30233N1 Transfusion of Nonautologous Red Blood Cells into Peripheral Vein, Percutaneous Approach (ICD-10-PCS; 2019-04-17)
DX: K91.31 Postprocedural partial intestinal obstruction (principal); K66.1 Hemoperitoneum; D62 Acute posthemorrhagic anemia; K56.50 Intestinal adhesions [bands], unspecified as to partial versus complete obstruction; K56.7 Ileus, unspecified; Y83.9 Surgical procedure, unspecified as the cause of abnormal reaction of the patient, or of later complication, without mention of misadventure at the time of the procedure; Y73.3 Surgical instruments, materials and gastroenterology and urology devices (including sutures) associated with adverse incidents; E03.9 Hypothyroidism, unspecified; I10 Essential (primary) hypertension; N28.9 Disorder of kidney and ureter, unspecified; I95.9 Hypotension, unspecified; F32.9 Major depressive disorder, single episode, unspecified; N73.6 Female pelvic peritoneal adhesions (postinfective); R74.0 Nonspecific elevation of levels of transaminase and lactic acid dehydrogenase [LDH]; D72.829 Elevated white blood cell count, unspecified; Z79.899 Other long term (current) drug therapy; Z79.890 Hormone replacement therapy; Z90.49 Acquired absence of other specified parts of digestive tract; Z90.710 Acquired absence of both cervix and uterus; Z80.3 Family history of malignant neoplasm of breast; Z90.722 Acquired absence of ovaries, bilateral
CPT/HCPCS: 36415; 74018; 74176; 80048; 80053; 82948; 83690; 83735; 84100; 85025; 85027; 85610; 86885; 86900; 86901; 86920; 87081; 96361; 96374; 96375; 99285; A4618; A6550; A7000; C9290; C9399; G0378; J0694; J0780; J1170; J1580; J1644; J1885; J2175; J2250; J2270; J2405; J2704; J2765; J3010; J3480; J3490; J7030; J7042; J7120; P9016; P9045; Q9963

== ENCOUNTER 2019-05-10 09:25 | Day surgery (SDC) | payer OTHER ==
[~2019-05-10 09:25] MED LIST: CIPR-230 PO; CITA40TA17 PO; PANT40TA4 PO; PER10325T PO
[2019-05-10] MEDS ORDERED: LIDOcaine/PRILOcaine 5gm cream TP ONE (10:09)
== END 2019-05-10 11:37 | disposition home or self-care (01) ==
LOC: WOUND CARE 09:25
PROVIDERS: ATTEND Surgery
DX: T81.89XA Other complications of procedures, not elsewhere classified, initial encounter (principal); L98.492 Non-pressure chronic ulcer of skin of other sites with fat layer exposed; I10 Essential (primary) hypertension; E03.9 Hypothyroidism, unspecified; F41.9 Anxiety disorder, unspecified; F32.9 Major depressive disorder, single episode, unspecified; Z90.710 Acquired absence of both cervix and uterus; Z90.49 Acquired absence of other specified parts of digestive tract; Z90.722 Acquired absence of ovaries, bilateral; Z79.890 Hormone replacement therapy; Z79.899 Other long term (current) drug therapy; Y83.8 Other surgical procedures as the cause of abnormal reaction of the patient, or of later complication, without mention of misadventure at the time of the procedure
CPT/HCPCS: 97597; A4456; A4663

== ENCOUNTER 2019-05-17 09:20 | Day surgery (SDC) | payer OTHER ==
[2019-05-17] MEDS ORDERED: LIDOcaine 2% 5ml jelly ONE (09:47)
== END 2019-05-17 10:50 | disposition home or self-care (01) ==
LOC: WOUND CARE 09:20
PROVIDERS: ATTEND Surgery
DX: T81.89XD Other complications of procedures, not elsewhere classified, subsequent encounter (principal); L98.492 Non-pressure chronic ulcer of skin of other sites with fat layer exposed; I10 Essential (primary) hypertension; E03.9 Hypothyroidism, unspecified; F41.9 Anxiety disorder, unspecified; F32.9 Major depressive disorder, single episode, unspecified; Z90.710 Acquired absence of both cervix and uterus; Z90.49 Acquired absence of other specified parts of digestive tract; Z90.722 Acquired absence of ovaries, bilateral; Z79.890 Hormone replacement therapy; Z79.899 Other long term (current) drug therapy; Y83.8 Other surgical procedures as the cause of abnormal reaction of the patient, or of later complication, without mention of misadventure at the time of the procedure
CPT/HCPCS: 97597; A4663

== ENCOUNTER 2019-05-24 11:05 | Day surgery (SDC) | payer OTHER ==
[~2019-05-24 11:05] MED LIST changes: -CIPR-230 PO
[2019-05-24] MEDS ORDERED: LIDOcaine 2% 5ml jelly ONE (11:27)
== END 2019-05-24 12:15 | disposition home or self-care (01) ==
LOC: WOUND CARE 11:05
PROVIDERS: ATTEND Surgery
DX: T81.89XD Other complications of procedures, not elsewhere classified, subsequent encounter (principal); L98.492 Non-pressure chronic ulcer of skin of other sites with fat layer exposed; I10 Essential (primary) hypertension; E03.9 Hypothyroidism, unspecified; F41.9 Anxiety disorder, unspecified; F32.9 Major depressive disorder, single episode, unspecified; Z90.710 Acquired absence of both cervix and uterus; Z90.49 Acquired absence of other specified parts of digestive tract; Z90.722 Acquired absence of ovaries, bilateral; Z79.890 Hormone replacement therapy; Z79.899 Other long term (current) drug therapy; Y83.8 Other surgical procedures as the cause of abnormal reaction of the patient, or of later complication, without mention of misadventure at the time of the procedure
CPT/HCPCS: 97597; A6222; A4663; A6021; A6212

== ENCOUNTER 2019-05-31 10:50 | Outpatient (CLI) | payer OTHER | END 2019-05-31 11:48 | disposition home or self-care (01) | LOC: WOUND CARE 10:50 | PROVIDERS: ATTEND Surgery | DX: T81.89XD Other complications of procedures, not elsewhere classified, subsequent encounter (principal); L98.492 Non-pressure chronic ulcer of skin of other sites with fat layer exposed; I10 Essential (primary) hypertension; E03.9 Hypothyroidism, unspecified; F41.9 Anxiety disorder, unspecified; F32.9 Major depressive disorder, single episode, unspecified; Z90.710 Acquired absence of both cervix and uterus; Z90.49 Acquired absence of other specified parts of digestive tract; Z90.722 Acquired absence of ovaries, bilateral; Z79.890 Hormone replacement therapy; Z79.899 Other long term (current) drug therapy; Y83.8 Other surgical procedures as the cause of abnormal reaction of the patient, or of later complication, without mention of misadventure at the time of the procedure | CPT/HCPCS: 97597; A4663; A6212 ==

== ENCOUNTER 2021-10-10 07:14 | Emergency (ER) | payer BC, OTHER ==
[2021-10-10] VITALS (13 sets, daily range): BP systolic 101–137; BP diastolic 64–88
[~2021-10-10] VITALS: Ht 188 cm; Wt 76.4 kg
[~2021-10-10 07:14] MED LIST changes: -PANT40TA4 PO; +PANT40TA54 PO; +sevoflurane 250ml liquid IH ONE
[2021-10-10] MEDS ORDERED: normal saline 1000ML IV soln IVB ONE (07:50)
[2021-10-10] MEDS ORDERED: iohexol 300mg/ml 100ml inj. ONE (07:56)
--- NOTE | 2021-10-10 08:00 | NUR ---
Changed absorbent bed pad underneath patient; physician notified of heavy vaginal bleeding.
[2021-10-10 08:04] LABS: ALANINE AMINOTRANSFERASE 25 U/L (12-78); ALBUMIN 3.8 G/DL (3.4-5.0); ALBUMIN/GLOBULIN RATIO 1.2 (1.1-1.5); ALKALINE PHOSPHATASE 61 IU/L (46-116); ANION GAP 9 (8-16); ASPARTATE AMINO TRANSFERASE 19 U/L (10-37); BILIRUBIN,TOTAL 0.5 MG/DL (0.1-1.0); BLOOD UREA NITROGEN 15 MG/DL (7-18); BUN/CREATININE RATIO 20.8 (6.6-38.0); CALCIUM 8.3 MG/DL (8.5-10.1); CHLORIDE 106 MMOL/L (99-107); CREATININE 0.72 MG/DL (0.40-0.90); GLUCOSE 93 MG/DL (70-104); POTASSIUM 3.7 MMOL/L (3.5-5.1); SODIUM 141 MMOL/L (135-145); TOTAL CARBON DIOXIDE 26.5 MMOL/L (24-32); TOTAL PROTEIN 7.1 G/DL (6.4-8.2); eGFR 84 ML/MIN
[2021-10-10 08:05] LABS: BASOPHILS % (AUTO) 0.3 % (0-1); EOSINOPHILS # (AUTO) 0.1 X10'3 (0-0.9); EOSINOPHILS % (AUTO) 1.1 % (0-6); HEMATOCRIT 43.1 % (35.0-45.0); HEMOGLOBIN 14.7 g/dl (12.0-16.0); LYMPHOCYTES # (AUTO) 1.5 X10'3 (1.1-4.8); LYMPHOCYTES % (AUTO) 15.9 % (21-51); MEAN CORPUSCULAR HEMOGLOBIN 30.6 PG (27.0-31.0); MEAN CORPUSCULAR HGB CONC 34.2 g/dL (33.0-36.5); MEAN CORPUSCULAR VOLUME 89.5 FL (78-98); MEAN PLATELET VOLUME 7.1 FL (7.4-10.4); MONOCYTES # (AUTO) 0.5 X10'3 (0-0.9); MONOCYTES % (AUTO) 5.2 % (2-12); NEUTROPHILS # (AUTO) 7.4 X10'3 (1.8-7.7); NEUTROPHILS % (AUTO) 77.5 % (42-75); PLATELET COUNT 278 X10'3 (140-440); RED BLOOD COUNT 4.81 X10'6 (4.20-5.60); RED CELL DISTRIBUTION WIDTH 13.1 % (11.5-14.5); WHITE BLOOD COUNT 9.5 X10'3 (4.5-11.0)
--- NOTE | 2021-10-10 08:20 | NUR ---
Patient absorbent bed pad changed by CT staff.
--- NOTE | 2021-10-10 08:43 | NUR ---
Changed absorbent bed pad underneath patient.
[2021-10-10] MEDS ORDERED: medroxyPROGESTERone acetate 150mg/ml inj IM ONE (09:15)
[2021-10-10] MEDS ORDERED: ondansetron/PF 4mg/2ml inj IV ONE (09:20)
[2021-10-10] MEDS ORDERED: morphine 4 MG/ML inj SYRINge IV ONE (09:20)
[2021-10-10] MEDS ORDERED: tranexamic acid 1gm/0.7% sal. 100 ML IV ONE (09:20)
--- NOTE | 2021-10-10 09:26 | NUR ---
Spoke to pharmacy regarding TXA. Med in progress. Approx 15 min wait.
[2021-10-10] MEDS ORDERED: normal saline 1000ml 1,000 ML IVB ONE (09:40)
--- NOTE | 2021-10-10 09:55 | NUR ---
2 units blood administered and documented on downtime form.
--- NOTE | 2021-10-10 10:04 | NUR ---
Called patient's sister, Mike to give update per patient's request. Left message on voice mail to return call.
[2021-10-10] MEDS ORDERED: midazolam 1 mg/ML 2ml injection ONE (10:23)
[2021-10-10] MEDS ORDERED: famotidine/PF 10 mg/ml inj IV ONE (10:26)
[2021-10-10] MEDS ORDERED: fentaNYL/PF 50MCG/1 ML 2ML syringe ONE (10:30)
[2021-10-10] MEDS ORDERED: rocuronium 10mg/ml inj IV ONE (10:31)
[2021-10-10] MEDS ORDERED: ceFAZolin 1000mg inj ONE ×2 (10:31)
[2021-10-10] MEDS ORDERED: etomidate 2mg/ml inj. ONE (10:31)
[2021-10-10] MEDS ORDERED: LIDOcaine 2% (20mg/ml) 5ml vial ONE (10:31)
[2021-10-10] MEDS ORDERED: 0.9 % SODIUM CHLORIDE 10 ML VIAL ONE ×3 (10:31)
[2021-10-10] MEDS ORDERED: sugammadex 200mg/2ml injection IV ONE (10:35)
[2021-10-10] MEDS ORDERED: dexamethasone sod phosphate 4mg/ml inj. ONE (10:36)
[2021-10-10] MEDS ORDERED: ondansetron/PF 4mg/2ml inj ONE (10:36)
--- NOTE | 2021-10-10 10:48 | NUR ---
Received from OR via BED IN STABLE CONDITION , accompanied by Anesthesiologist and BEVERAGE MANAGER report given by BEVERAGE MANAGER AND Anesthesiolgist. Addendum: 10/10/21 at 1128 by Oneida Wilkinson RN Amended: Links added.
[2021-10-10] MEDS ORDERED: acetaminophen 1,000mg/100ml IV 100 ML IV PRN (11:00)
[2021-10-10] MEDS ORDERED: morphine 2 MG/ML inj. syringe IV PRN (11:00)
[2021-10-10] MEDS ORDERED: morphine 4 MG/ML inj SYRINge IV PRN (11:00)
[2021-10-10] MEDS ORDERED: ringers solution, lacted 1,000 ML IV SCH (11:00)
[2021-10-10] MEDS ORDERED: HYDROmorphone/PF 0.2 MG/ML SYRINGE IV PRN ×2 (11:00)
[2021-10-10] MEDS ORDERED: meperidine/PF 25mg/ml syringe IV PRN (11:00)
[2021-10-10] MEDS ORDERED: ondansetron/PF 4mg/2ml inj IV PRN (11:00)
--- NOTE | 2021-10-10 11:06 | NUR ---
Update given to patient's sisterMike.
[2021-10-10] MEDS: proCHLORperazine 10 MG/2 ml inj IV PRN ×2 (12:06→14:05)
[2021-10-10] MEDS ORDERED: HYDROcodone/acetaminophen 10/325mg tab PO ONE (12:15)
--- NOTE | 2021-10-10 12:35 | NUR ---
RECEIVED PT FROM , VIA BED, 20G TO LEFT FA AND 18G TO RIGHT FA WITH LR RUNNING. PT DENIES DISCOMFORT AT THIS TIME, SHE STATES SHE JUST WANTS TO REST. SCANT DRIED BLOOD TO MARKOS PAD. PT ON MONITOR. Addendum: 10/10/21 at 1521 by Sherri Magdaleno RN Amended: Links added.
--- NOTE | 2021-10-10 13:08 | NUR ---
PT DC TO HOME VIA W/C TO CAR. PT FRIEND AND PT VERBAL UNDERSTANDING OF DC INSTRUCTIONS AND TO CALL FOR F/U APT IN 2 WEEKS. Addendum: 10/10/21 at 1543 by Sherri Magdaleno RN Amended: Links added.
[2021-10-10 14:04] LABS: BASOPHILS % (AUTO) 0.2 % (0-1); EOSINOPHILS % (AUTO) 0.1 % (0-6); HEMATOCRIT 35.6 % (35.0-45.0); HEMOGLOBIN 12.2 g/dl (12.0-16.0); LYMPHOCYTES # (AUTO) 0.3 X10'3 (1.1-4.8); LYMPHOCYTES % (AUTO) 3.5 % (21-51); MEAN CORPUSCULAR HEMOGLOBIN 30.3 PG (27.0-31.0); MEAN CORPUSCULAR HGB CONC 34.3 g/dL (33.0-36.5); MEAN CORPUSCULAR VOLUME 88.5 FL (78-98); MEAN PLATELET VOLUME 6.6 FL (7.4-10.4); MONOCYTES # (AUTO) 0.2 X10'3 (0-0.9); MONOCYTES % (AUTO) 1.9 % (2-12); NEUTROPHILS # (AUTO) 8.7 X10'3 (1.8-7.7); NEUTROPHILS % (AUTO) 94.3 % (42-75); PLATELET COUNT 208 X10'3 (140-440); RED BLOOD COUNT 4.02 X10'6 (4.20-5.60); RED CELL DISTRIBUTION WIDTH 13.2 % (11.5-14.5); WHITE BLOOD COUNT 9.2 X10'3 (4.5-11.0)
== END 2021-10-10 15:08 | disposition home or self-care (01) ==
LOC: ER 07:17
DX: R57.1 Hypovolemic shock (principal); R58 Hemorrhage, not elsewhere classified; R10.31 Right lower quadrant pain; R10.32 Left lower quadrant pain; N93.8 Other specified abnormal uterine and vaginal bleeding; R55 Syncope and collapse; R42 Dizziness and giddiness; F32.9 Major depressive disorder, single episode, unspecified; Z90.89 Acquired absence of other organs; Z90.49 Acquired absence of other specified parts of digestive tract; Z90.710 Acquired absence of both cervix and uterus; Z98.890 Other specified postprocedural states; Z79.899 Other long term (current) drug therapy
CPT/HCPCS: 36415; 36430; 74177; 80053; 85025; 86885; 86900; 86901; 86920; 96361; 96365; 96375; 96376; 99291; A6402; J0131; J0690; J0780; J1100; J1170; J2250; J2270; J2405; J3010; J3490; J7030; J7120; P9016; Q9967; Z7506; Z7512; A4338; A4618; A7000